=== PATIENT | female | born 1950 | race Caucasian/White ===

== ENCOUNTER 2018-09-05 19:05 | Emergency (ER) | payer SELFPAY ==
[~2018-09-05] VITALS: Ht 154.9 cm; Wt 94.5 kg
[~2018-09-05 19:05] MED LIST: ALBU8.5H5 IH; BENA40TA56 PO; GUAI118L94 PO; HYDR-3498 PO; HYDR25TA6 PO; IBUP-1542 PO; LEVO125T PO; PARO40TA63 PO; SIMV20TA PO
[2018-09-05 19:08] VITALS: BP 168/78; PULSE 75; RESP 20; Ht 154.9 cm; Wt 94.5 kg
== END 2018-09-06 00:41 | disposition left against medical advice (07) ==
LOC: E/R 19:05
DX: Z53.21 Procedure and treatment not carried out due to patient leaving prior to being seen by health care provider (principal)